=== PATIENT | female | born 1995 | race African-American/Black ===

== ENCOUNTER 2021-06-19 09:27 | Emergency (ER) | payer BC ==
[2021-06-19 09:40] VITALS: BP 116/76; PULSE 84; TEMP 98.8; BMI 25.8
== END 2021-06-19 11:47 | disposition home or self-care (01) ==
LOC: FER 09:27
DX: S93.402A Sprain of unspecified ligament of left ankle, initial encounter (principal); X50.9XXA Other and unspecified overexertion or strenuous movements or postures, initial encounter
CPT/HCPCS: 73610-TC-LT-FY; 73630-TC-LT; 99283-25

== ENCOUNTER 2021-10-13 09:34 | Emergency (ER) | payer BC ==
[2021-10-13 09:47] VITALS: BP 116/82; PULSE 74; TEMP 99; BMI 26.6
[2021-10-13] MEDS ORDERED: ACETAMINOPHEN 325 MG TABLET (FP) PO ONE (09:53)
[2021-10-13] MEDS ORDERED: LIDOCAINE HCL 1%, 10 MG/ML (20ML VIAL) ONE (10:07)
[2021-10-13] MEDS ORDERED: ACETAMINOPHEN 325 MG TABLET (FP) ONE (10:23)
== END 2021-10-13 11:01 | disposition home or self-care (01) ==
LOC: FER 09:34
PROC: 0H98XZZ Drainage of Buttock Skin, External Approach (ICD-10-PCS; principal; 2021-10-13)
DX: L02.31 Cutaneous abscess of buttock (principal)
CPT/HCPCS: 87070; 87186; 87205; 99283-25

== ENCOUNTER 2022-06-17 00:19 | Emergency (ER) | payer BC ==
[2022-06-17 00:26] VITALS: RESP 16; BMI 26.6
[2022-06-17 00:36] VITALS: BP 106/62; PULSE 89; TEMP 98.9
[2022-06-17] MEDS ORDERED: IBUPROFEN 400 MG TABLET (FP) PO ONE ×2 (00:58→01:00)
== END 2022-06-17 01:04 | disposition home or self-care (01) ==
LOC: FER 00:19
DX: R07.89 Other chest pain (principal)
CPT/HCPCS: 93005; 99283-25

== ENCOUNTER 2023-02-23 15:18 | Emergency (ER) | payer BC, OTHER ==
[2023-02-23] MEDS ORDERED: IBUPROFEN 600 MG TABLET (FP) PO ONE ×2 (15:31→15:47)
[2023-02-23 15:37] VITALS: BP 121/80; PULSE 92; RESP 18; TEMP 98.6; BMI 27.3
== END 2023-02-23 17:45 | disposition home or self-care (01) ==
LOC: FER 15:18
DX: S93.401A Sprain of unspecified ligament of right ankle, initial encounter (principal); X50.9XXA Other and unspecified overexertion or strenuous movements or postures, initial encounter
CPT/HCPCS: 73610-TC-RT-FY; 73630-TC-RT-FY; 99283-25

== ENCOUNTER 2023-12-28 10:54 | Emergency (ER) | payer OTHER ==
[2023-12-28 11:01] VITALS: BP 118/76; PULSE 79; RESP 16; TEMP 99.3; BMI 31.3
[2023-12-28] MEDS ORDERED: IBUPROFEN 600 MG TABLET (FP) PO ONE (11:12)
[2023-12-28] MEDS: IBUPROFEN 600 MG TABLET (FP) PO ONE (11:15)
== END 2023-12-28 11:26 | disposition home or self-care (01) ==
LOC: FER 10:54
DX: M25.561 Pain in right knee (principal); M25.562 Pain in left knee
CPT/HCPCS: 99283-25